=== PATIENT | male | born 1995 | race Caucasian/White ===

== ENCOUNTER 2025-03-04 10:50 | Emergency (ER) | payer MEDICAID, SELFPAY ==
[2025-03-04 11:15] VITALS: BP 148/93; PULSE 67; RESP 18; TEMP 36.8; O2SAT 99; BMI 30.7
--- NOTE | 2025-03-04 11:34 | XR_ITS ---
EXAMINATION: Ankle, right 3 views. Technique: Ankle AP, oblique, lateral 3 views Date and time of exam: March 04, 2025, 1207 hours INDICATION: Patient fell today with injury to ankle, ankle pain. FINDINGS: No fracture or dislocation. No foreign body IMPRESSION: No fracture or dislocation
--- NOTE | 2025-03-04 11:34 | XR_ITS ---
EXAMINATION: Ankle, left 3 views. Technique: Ankle AP, oblique, lateral 3 views Date and time of exam: March 04, 2025, 1207 hours INDICATION: Patient fell today with injury in the ankle, ankle pain. FINDINGS: No fracture or dislocation No foreign body IMPRESSION: No fracture or dislocation
--- NOTE | 2025-03-04 11:35 | XR_ITS ---
Examination: Foot, right, 3 views Technique: AP, oblique, lateral views foot, 3 views Date and time of exam: March 04, 2025, 1207 hours INDICATION: Patient fell today with injury to the foot, foot pain. FINDINGS: No acute fracture No dislocation No foreign body IMPRESSION: No acute fracture
--- NOTE | 2025-03-04 11:35 | XR_ITS ---
Examination: Foot, left, 3 views Technique: AP, oblique, lateral views foot, 3 views Date and time of exam: March 04, 2025, 0207 hours INDICATION: Patient fell today with injury to the foot, foot pain. FINDINGS: No acute fracture No dislocation No foreign body IMPRESSION: No acute fracture
--- NOTE | 2025-03-04 11:36 | XR_ITS ---
EXAMINATION: Right elbow 2 views TECHNIQUE: AP lateral right elbow 3 views Date and time: March 04, 2025, 1220 hours INDICATION: Patient fell today with injury to the elbow, elbow pain. FINDINGS: No fracture or dislocation. No elbow effusion IMPRESSION: No fracture or dislocation
--- NOTE | 2025-03-04 11:40 | PD.EDANKLE ---
Lower Extremity Injury RME/HPI General Chief Complaint: Ankle/Foot Injury Stated Complaint: BILATERAL ANKLE PAIN FELL FROM ROOF YESTERDAY Time Seen by Provider: 03/04/25 11:16 Arrival date/time: 03/04/25 10:50 This is a 29-year-old male that comes into the emergency room with complaints of bilateral ankle/foot pain that started yesterday after falling through a ceiling.. Patient states that he landed on his feet and then kind of felt towards his right elbow. Patient has bilateral ankle and feet pain. Patient denies any loss of consciousness. Patient denies any nausea vomiting. Patient denies any other neurological symptoms. Patient just complains of ankle pain. Patient denies any neck or back pain. Patient denies any head trauma or contusions to his head neck or back. Patient denies past medical history Related Data Previous Rx's ?Medication ?Instructions ?Recorded diphenhydramine HCl 25 mg capsule 25 mg PO QID #10 tabs 06/13/13 (Benadryl) epinephrine 0.3 mg/0.3 mL 0.3 mg (0.3 mL) IM UD #1 ea 06/13/13 injection, auto-injector (EpiPen 2-Migue) ibuprofen 600 mg tablet 600 mg PO Q6HR PRN PAIN #30 tabs 10/26/14 Allergies Allergy/AdvReac Type Severity Reaction Status Date / Time NKA* Allergy Uncoded 03/04/25 10:54 Review of Systems Review of Systems Systems Reviewed: All systems reviewed, normal except as documented Past Medical History Past Medical History Comments PMH COMMENT: Denies ED Exam Narrative Physical exam: VITAL SIGNS: Reviewed. GENERAL APPEARANCE: Alert and interactive, follows commands, no acute distress HEAD AND FACE: Non-traumatic. ENT: PERRL, conjuctiva pink and clear, eyelid no trauma, Mucous membrane moist. NECK: Supple, nontender, no nuchal rigidity. CHEST: No tenderness, no crepitus, no paradoxical movement, no retractions. LUNGS: breathing even and unlabored HEART: Regular rate, cap refill less than 2 seconds ABDOMEN: Soft, nondistended, no guarding, nontender, no rebound, no masses, NEUROLOGICAL: Gross motor function intact sensory function intact, Appropriate for age. MUSCULOSKELETAL: low back nontender, full range of motion. no midline tenderness, no meningismus, no step offs, pain to palpation to lateral bilateral ankles. No swelling no deformity noted full range of motion to bilateral ankles. EXTREMITIES: No redness no swelling no skin breakdown on bilateral foot and leg. Distal neurovascular status intact bilateral foot SKIN: Color pink, dry Course Quality Measures none Orders Category Date Time Status XR ankle comp LT min 3V Stat Exams 03/04/25 11:34 Completed XR ankle comp RT min 3V Stat Exams 03/04/25 11:34 Completed XR elbow RT 2V Stat Exams 03/04/25 11:36 Completed XR foot comp LT min 3V Stat Exams 03/04/25 11:35 Completed XR foot comp RT min 3V Stat Exams 03/04/25 11:35 Completed Acetaminophen Tab [Tylenol ES Tab] Med 03/04/25 11:36 Discontinued 1,000 mg PO X1 ONE Ibuprofen Tab [Motrin Tab] Med 03/04/25 11:36 Discontinued 800 mg PO X1 ONE Vital Signs Vital signs: Vital Signs Temperature 98.3 F 03/04/25 11:15 Pulse Rate 67 03/04/25 11:15 Respiratory Rate 18 03/04/25 11:15 Blood Pressure 148/93 H 03/04/25 11:15 Pulse Oximetry (%) 99 03/04/25 11:15 Oxygen Delivery Method Room Air 03/04/25 11:15 Extremity Injury, Lower MDM Narrative MDM Narrative:: ELBOW: FINDINGS: No fracture or dislocation. No elbow effusion IMPRESSION: No fracture or dislocation LEFT FOOT: FINDINGS: No acute fracture No dislocation No foreign body IMPRESSION: No acute fracture RIGHT FOOT: FINDINGS: No acute fracture No dislocation No foreign body IMPRESSION: No acute fracture RIGHT ANKLE: FINDINGS: No fracture or dislocation. No foreign body IMPRESSION: No fracture or dislocation LEFT ANKLE: FINDINGS: No fracture or dislocation No foreign body IMPRESSION: No fracture or dislocation Today patient had xray. There was no acute fracture seen. Exam appeared unremarkable. I explained to patient at length that if there was continued pain to this area or worsened to come back to ED or see primary provider for more xrays or further testing such as CT scan or MRI. X rays are not perfect and sometimes serial films needed. Patient verbalized understanding. Patient states they will follow up with primary provider in 1-2 days or come back to ED if symptoms change or worsen. Patient data External records reviewed:: [facility] previous records Clinical information provided by:: patient Social determinants that could affect healthcare access:: none Patient has the following chronic illnesses:: none How is presenting disease/condition affected by chronic disease/condition?: no chronic disease Evaluation data The following diagnostics were reviewed and interpreted by me:: radiology exam(s) Lab and/or radiology exams considered but not ordered:: none Interpretation Summary: see note Medications / Prescriptions Medications or Prescriptions considered but not ordered:: none Medication administrations:: Medication Administration History Discontinued Medications Acetaminophen (Acetaminophen 500 Mg Tablet) 1,000 mg PO X1 ONE Stop: 03/04/25 11:37 Last Admin: 03/04/25 12:49 Dose: 1,000 mg Documented By: ARTEM Ibuprofen (Ibuprofen Tab 400 Mg Tablet) 800 mg PO X1 ONE Stop: 03/04/25 11:37 Last Admin: 03/04/25 12:49 Dose: 800 mg Documented By: ARTEM [facility] Consultations Consultation(s) initiated? (list below): No Diagnosis Most likely diagnosis given after review of the tests above:: contusion Admission Indicated Admission indicated?: not indicated Admission Request Was there a request for admission?: No Disposition Plan Disposition Plan: Discharge Discharge Attestation Discharge Attestation: The patient and all family members were given an opportunity to ask questions and understood the discharge instructions. Discharge instructions specifically effects, indications for sooner follow up or return to the emergency department, and the expected course of current diagnosis. Patient condition: Stable Discharge Plan Plan Patient Disposition: HOME (Self Care) Patient condition on transfer: Stable Prescriptions/Referrals Prescriptions/Med Rec: No Action diphenhydramine HCl [Benadryl] 25 MG capsule 25 mg PO QID Qty: 10 0RF epinephrine [EpiPen 2-Migue] 0.3 MG/0.3 ML auto-injector 0.3 mg IM UD Qty: 1 0RF ibuprofen 600 MG tablet 600 mg PO Q6HR PRN (Reason: PAIN) Qty: 30 0RF Referrals: No Primary/Family,Physician [Primary Care Provider] - In 1 week Problem List Clinical Impression: Ankle contusion, Contusion of elbow Patient/Caregiver Discharge Instructions Discharge Activity: activity as tolerated Education Materials: Bruises (Contusions) Additional Instructions: Follow up with primary provider in 1-2 days. Come back to ED if symptoms change or worsen Print Language: Gambian Stand Alone Forms: Carole Award Info., Patient Portal Info Letter PA/CLINICAL APPLICATIONS MANAGER Supervising Physician PA/CLINICAL APPLICATIONS MANAGER Supervising Physician: EMORY
--- NOTE | 2025-03-04 12:30 | PC.NURSE ---
pt called inside and outside lobby; no response a this time
[2025-03-04] MEDS: ACETAMINOPHEN 500 MG TABLET 1000 MG PO (12:49)
[2025-03-04] MEDS: IBUPROFEN TAB 400 MG TABLET 800 MG PO (12:49)
== END 2025-03-04 18:16 | disposition home or self-care (01) ==
PROVIDERS: Emergency Provider Nurse Practitioner Family
DX: S90.02XA Contusion of left ankle, initial encounter (principal); S90.01XA Contusion of right ankle, initial encounter; S50.01XA Contusion of right elbow, initial encounter; S99.922A Unspecified injury of left foot, initial encounter; S99.921A Unspecified injury of right foot, initial encounter; W13.2XXA Fall from, out of or through roof, initial encounter
CPT/HCPCS: 73070; 73610; 73630; 99282; A9270